=== PATIENT | female | born 1955 | race Two or more races ===

== ENCOUNTER → 2016-09-25 | Outpatient (CLI) | payer OTHER ==
--- NOTE | 2016-09-25 15:35 | KCIC ---
Ultrasound Pelvis Indication:Reason For Study Reason: POST MENOPAUSAL BLEEDING / Spl. Instructions: / History: Technique: Multiple real-time grayscale images were obtained over the pelvis transabdominally and transvaginally. Color Doppler imaging was utilized. Findings: The uterus is normal in size measuring 6.1 x 2.6 x 3.2 cm. The endometrium is thickened measuring 12 mm. The right ovary measures 1.8 x 0.8 x 2.6cm. No abnormal right ovarian lesions are identified. Normal blood flow is identified. The left ovary measures 1.9 x 1.1 x 2.0cm. There is a complex cyst versus nodule measuring 0.9 centimeters. Normal blood flow is identified. No pelvic free fluid is identified. Impression: - Thickened endometrium measuring 12 millimeters. - Complex cyst versus nodule in the left ovary. Electronically signed by: Ned Trimble (Sep 25, 2016 15:34:23)
== END | disposition home or self-care (01) ==
LOC: KCIC US 12:55
PROVIDERS: ATTEND Nurse Practitioner
DX: N95.0 Postmenopausal bleeding (principal)
CPT/HCPCS: 76830

== ENCOUNTER → 2016-10-10 | Outpatient (CLI) | payer OTHER | END | disposition home or self-care (01) | LOC: LAB 15:32 | PROVIDERS: ATTEND Obstetrics & Gynecology | DX: N83.9 Noninflammatory disorder of ovary, fallopian tube and broad ligament, unspecified (principal) | CPT/HCPCS: 86304 ==

== ENCOUNTER → 2016-11-27 | Outpatient (CLI) | payer OTHER ==
--- NOTE | 2016-11-27 15:28 | EKG ---
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
--- NOTE | 2016-11-27 16:07 | RAD ---
Exam: PA and lateral chest radiograph History: Preoperative for hysterectomy December 17, 2016. Comparison: None. Findings: Cardiomediastinal silhouette is within normal limits for size. Bilateral lung carey are free of focal infiltrate. No pleural effusion is seen. Impression: No acute cardiopulmonary process.
[2016-11-27 16:25] LABS: BASO # 0.1 x10^3/uL (0.0-0.2); BASO % 1 % (0-3); EOS % 4 % (0-3); HEMOGLOBIN 14.3 g/dL (12.0-15.5); LYMPH # 2.1 x10^3/uL (1.0-4.8); LYMPH % 27 % (24-48); MEAN CORPUSCULAR HEMOGLOBIN 30 pg (25-35); MEAN CORPUSCULAR HGB CONC 34 g/dL (31-37); MEAN CORPUSCULAR VOLUME 87 fL (79-100); MONO % 8 % (0-9); NEUT % 60 % (31-73); PLATELET COUNT 290 x10^3/uL (140-400); RED BLOOD COUNT 4.82 x10^6/uL (3.50-5.40); RED CELL DISTRIBUTION WIDTH 13.6 % (11.5-14.5); WHITE BLOOD COUNT 7.6 x10^3/uL (4.0-11.0)
[2016-11-27 16:42] LABS: ALBUMIN 3.9 g/dL (3.4-5.0); CALCIUM 9.4 mg/dL (8.5-10.1); CREATININE 0.8 mg/dL (0.6-1.0); GFR 72.9; POTASSIUM 3.5 mmol/L (3.5-5.1); TOTAL BILIRUBIN 0.3 mg/dL (0.2-1.0); TOTAL PROTEIN 7.9 g/dL (6.4-8.2)
== END | disposition home or self-care (01) ==
LOC: LAB 14:58
PROVIDERS: ATTEND Obstetrics & Gynecology Gynecologic Oncology
DX: Z01.818 Encounter for other preprocedural examination (principal); C54.1 Malignant neoplasm of endometrium
CPT/HCPCS: 36415; 71020; 80053; 85027; 86304; 93005

== ENCOUNTER → 2016-12-10 | Outpatient (CLI) | payer OTHER ==
[~2016-12-10] MED LIST: OMEG500C PO; RED600CA2 PO; REGADENOSON 0.4 MG/5 ML DISP.SYRIN. IV ONE
--- NOTE | 2016-12-10 14:21 | RAD ---
APPROVED REPORT Test Type: Pharmacological Stress Nurse/Tech: SHRAVAN Redd Test Indications: Pre-OP Cardiac History: See Electronic Medical Record Medications: See Electronic Medical Record Medical History: See Electronic Medical Record Resting ECG: SR Resting Heart Rate: 73 bpm Resting Blood Pressure: 167/90mmHg Pretest Chest Pain: No chest pain Nurse/Tech Notes S1S2, Denies CP or SOA, Lungs CTA Consent: The procedure was explained to the patient in lay terms. Informed consent was witnessed. Darrion eout was entered into [employer]. History and Stress Test performed by RT Erwin (R) (N) Pharm. Details Pharmacologic stress testing was performed using 0.4mg per 5ml of regadenoson given intravenously ove r 7-10 seconds. Stress Symptoms Pt c/o of "tightness in chest and abdomen" resolved quickly POST EXERCISE Reason for Termination: Infusion complete Max HR: 110 bpm Max Blood Pressure: 168/89mmHg Chest Pain: No. Arrhythmia: No. ST Change: No. INTERPRETATION Stress EKG Conclusion: Approximately 1.5mm upsloping inferolateral ST depression. Mildly positive res ponse. Imaging Protocol IMAGE PROTOCOL: Rest Tc-99m/stress Tc-99m 1 day Rest: Stress: Viability: Radiopharm.Tc99m MbifpxdusJq98h Sestamibi Dose11.3mCi 32mCi Img Date 12/10/2016 12/10/2016 Inj-Img Kbut31mpm. 60min. Rest Admin Site:IV - Right AntecubitalAdministrator:NAVDEEP Brownlee, ARRT (R)(N) Stress Admin Site: IV - Right AntecubitalAdministrator: RT Erwin (R)(N) STRESS DATA End Diast. Vol.42.0mlAv. Heart Rate75.0bpm End Syst. Vol.7.0mlCO Index BSA0.0L/min Myocardial Mass88.0gEject. Lazbgxqc32.0% Stress Rates Pk. Fill Rate4.23EDV/secLVtime Pk. Fill 228.22msec Pk. Empty Rate4.59ESV/secLVtime Pk. Kmuyy799.23msec /3 Pk. Fill0.69EDV/sec Stress Scores Regional WT1.00Summed WT2.00 Regional WM0.00Summed WM2.00 The rest and stress images show normal perfusion, normal contraction and thickening. LV Perf. Quant 17 Seg. SSS0.00 17 Seg. SRS0.00 17 Seg. SDS0.00 Stress Defect Extent (% LAD)0.00Rest Defect Extent (% LAD)0.00Rev. Defect Extent (% LAD)0.00 Stress Defect Extent (% LCX) 0.00Rest Defect Extent (% LCX)0.00Rev. Defect Extent (% LCX)0.00 Stress Defect Extent (% RCA)0.00Rest Defect Extent (% RCA)0.00Rev. Defect Extent (% RCA)0.00 Stress Defect Extent (% OVI)0.00Rest Defect Extent (% OVI)0.00Rev. Defect Extent (% OVI)0.00 Other Information Quality:Good Risk Assessment: Moderate-High Risk Conclusion 1. Approximately 1.5mm upsloping inferolateral ST depression. Mildly positive EKG response. 2. Normal perfusion at stress/rest but there is evidence of transient ischemic dilation at a ratio of 1.3, suggestive but not conclusive of balanced multivessel ischemia. 3. Normal EF at > 70% 4. Moderate to high risk study.
== END | disposition home or self-care (01) ==
LOC: NM 08:48
PROVIDERS: ATTEND Internal Medicine Cardiovascular Disease
DX: Z01.818 Encounter for other preprocedural examination (principal)
CPT/HCPCS: 78452; 93017; 96374; 96375; 96376; A9500; J2785

== ENCOUNTER → 2016-12-12 | Outpatient (CLI) | payer OTHER ==
[~2016-12-12] MED LIST changes: -REGADENOSON 0.4 MG/5 ML DISP.SYRIN. IV ONE
--- NOTE | 2016-12-12 15:02 | CARD ---
APPROVED REPORT EXAM: Two-dimensional and M-mode echocardiogram with Doppler and color Doppler. Other Information Quality : Average Rhythm : NSR INDICATION Murmur 2D DIMENSIONS RVDd2.6 (2.9-3.5cm)Left Atrium(2D)2.4 (1.6-4.0cm) IVSd1.0 (0.7-1.1cm)Aortic Root(2D)2.4 (2.0-3.7cm) LVDd3.5 (3.9-5.9cm)LVOT Diameter1.9 (1.8-2.4cm) PWd1.0 (0.7-1.1cm)LVDs2.1 (2.5-4.0cm) FS (%) 30.6 %SV37.5 ml LVEF(%)62.4 (>50%) Aortic Valve AoV Peak Keaton.133.8cm/sAoV VTI26.3cm AO Peak GR.7.2mmHgLVOT Peak Keaton.114.2cm/s LVOT VTI 23.78cmAO Mean GR.4mmHg SARAH (VMAX)2.55ki1ZXD (VTI)2.46cm2 Mitral Valve MV E Jbgomofd01.9cm/sMV DECEL TPWK339ro MV A Qwugpqhw11.3cm/sMV HKO06eg E/A Ratio0.8MV A Behvripd501cj MVA (PHT)3.42cm2 TDI E/Lateral E'7.4E/Medial E'8.4 Pulmonary Valve PV Peak Axjvefrr125.5cm/sPV Peak Grad.4mmHg Tricuspid Valve TR P. Iymglwzd584mq/sRAP LKIGEPOW8vhDg TR Peak Gr.70fhBuKLXR46ifKr LEFT VENTRICLE The left ventricle is normal size. There is normal left ventricular wall thickness. Left ventricle sy stolic function is normal. The Ejection Fraction is 60-65%. There is normal LV segmental wall motion. The left ventricular diastolic function and filling is normal for age. There is no ventricular septa l defect visualized. RIGHT VENTRICLE The right ventricle is normal size. The right ventricular systolic function is normal. ATRIA The left atrium size is normal. The right atrium size is normal. The interatrial septum is intact wit h no evidence for an atrial septal defect or patent foramen ovale as noted on 2-D or Doppler imaging. AORTIC VALVE The aortic valve is normal in structure and function. The aortic valve is trileaflet. Doppler and Col or Flow revealed no significant aortic regurgitation. There is no significant aortic valvular stenosi s. MITRAL VALVE The mitral valve is normal in structure and function. There is no mitral valve stenosis. Doppler and Color Flow revealed trace mitral regurgitation. TRICUSPID VALVE The tricuspid valve is normal in structure and function. Doppler and Color Flow revealed trace tricus pid regurgitation. The PA pressure was estimated at 29 mmHg. There is no tricuspid valve stenosis. PULMONIC VALVE The pulmonic valve is not well visualized. Doppler and Color Flow revealed no pulmonic valvular regur gitation. There is no pulmonic valvular stenosis. GREAT VESSELS The aortic root is normal in size. The IVC is normal in size and collapses >50% with inspiration. PERICARDIAL EFFUSION There is no evidence of significant pericardial effusion. Critical Notification Critical Value: No <Conclusion> Left ventricle systolic function is normal. The Ejection Fraction is 60-65%. There is normal LV segmental wall motion.
== END | disposition home or self-care (01) ==
LOC: ECHO 13:54
PROVIDERS: ATTEND Internal Medicine Cardiovascular Disease
DX: I08.1 Rheumatic disorders of both mitral and tricuspid valves (principal)
CPT/HCPCS: 93306

== ENCOUNTER 2016-12-13 06:29 | Outpatient (CLI) | payer OTHER ==
[~2016-12-13] VITALS: Ht 152.4 cm; Wt 51.3 kg
[2016-12-13] VITALS (8 sets, daily range): BP systolic 140–178; BP diastolic 78–95
[2016-12-13] MEDS ORDERED: IOHEXOL 300 MG/ML 100ML VIAL. ONE (07:10)
[2016-12-13] MEDS ORDERED: LIDOCAINE 2% 20 ML VIAL. ONE (07:10)
[2016-12-13 07:19] LABS: HEMOGLOBIN 13.7 g/dL (12.0-15.5); RED BLOOD COUNT 4.65 x10^6/uL (3.50-5.40); WHITE BLOOD COUNT 6.8 x10^3/uL (4.0-11.0)
[2016-12-13 07:24] LABS: CALCIUM 9.3 mg/dL (8.5-10.1); CREATININE 0.7 mg/dL (0.6-1.0); GFR 85.1; POTASSIUM 3.7 mmol/L (3.5-5.1)
[2016-12-13 07:28] LABS: PROTHROMBIN TIME PATIENT 12.3 SEC (11.7-14.0)
[2016-12-13] MEDS ORDERED: VERAPAMIL 5 MG/2 ML VIAL. ONE (07:31)
[2016-12-13] MEDS ORDERED: fentaNYL PF VIAL 100 MCG/2 ML VIAL ONE (07:31)
[2016-12-13] MEDS ORDERED: NITROGLYCERIN 200 MCG/2 ML SYRINGE FOR CATH/VASC LAB. ONE (07:31)
[2016-12-13] MEDS ORDERED: MIDAZOLAM HCL/PF 2 MG/2 ML VIAL. ONE (07:31)
[2016-12-13] MEDS ORDERED: HEPARIN for IV BOLUS 10,000 UNIT/10 ML VIAL. ONE (07:32)
[2016-12-13] MEDS ORDERED: VERAPAMIL 5 MG/2 ML VIAL. IART ONE (08:15)
[2016-12-13] MEDS ORDERED: MIDAZOLAM HCL/PF 2 MG/2 ML VIAL. IV ONE (08:15)
[2016-12-13] MEDS ORDERED: fentaNYL PF VIAL 100 MCG/2 ML VIAL IV ONE (08:15)
[2016-12-13] MEDS ORDERED: HEPARIN for IV BOLUS 10,000 UNIT/10 ML VIAL. IART ONE (08:15)
[2016-12-13] MEDS ORDERED: NITROGLYCERIN 200 MCG/2 ML SYRINGE FOR CATH/VASC LAB. IART ONE (08:15)
[2016-12-13] MEDS ORDERED: IOHEXOL 300 MG/ML 100ML VIAL. IART ONE (08:15)
[2016-12-13] MEDS ORDERED: LIDOCAINE 2% 20 ML VIAL. IJ ONE (08:15)
[2016-12-13] MEDS ORDERED: IV 1/2 NORMAL SALINE 1,000 ML IV SCH (08:45)
--- NOTE | 2016-12-13 08:47 | PDOC ---
MODERATE SEDATION ASSESSMENT RISKS/ALTERNATIVES Risks/Alternatives Risks and alternatives of this type of sedation and procedure discussed with: RISK/ALTERNATIVES: Patient H & P ON CHART H & P H & P on chart and reviewed for co-morbid conditions and appropriate labs. H&P ON CHART: Yes STATUS PREG STATUS ASSESSED: N/A MEDS/ALLERGIES REVIEWED Meds/Allergies Reviewed Medications and Allergies including time and route of recently administered narcotics and sedatives. MEDS/ALLERGIES REVIEWED: Yes ASA RATING ASA RATING: II AIRWAY ASSESSMENT Airway Assessment Airway patency, oral function limitations, presence of caps, crowns, dentures, partials, and ability to extend neck assessed. AIRWAY ASSESSMENT: Yes MALLAMPATI SCORE MALLAMPATI SCORE: II PRE-SEDATION ASSESSMENT PRE-SEDATION ASSESSMENT: Yes DANE KLEIN MD December 13, 2016 08:47
--- NOTE | 2016-12-13 09:08 | CARD ---
APPROVED REPORT Procedure(s) performed: Left Heart Catheterization, selective coronary angiography and left ventricul ography via right trans-ulnar approach INDICATION The indication(s) include : Preoperative evaluation and positive stress test. PROCEDURE NARRATIVE After explaining the risks, benefits and alternative options, informed consent was obtained from fabrizio ent. Patient was brought to the cardiac Masking Machine Feeder and right wrist was prepped and draped in the usual fashion after confirming a positive modified Lalo's test. After initial attempts to obtain radial arterial access failed secondary to small caliber nature of the vessel, arterial access was obtained in the right ulnar artery and 6 Indian sheath was inserted. 5 Indian Sudhakar and 5 Indian JR4 catheter s were used to perform selective angiography of the left and right coronary arteries. The Sudhakar cath eter was also used to perform left ventriculography. Patient tolerated the procedure well. Hemostas is was achieved using TR band. There were no immediate complications. The following findings were n oted. FINDINGS 1. Hemodynamics: Left ventricular end-diastolic pressure of 24 mmHg. No pullback gradient across th e aortic valve. 2. Left ventriculography: Normal left ventricle systolic function with ejection fraction estimated at 60%. No significant mitral regurgitation seen. 3. Coronary angiography: a. The left main coronary artery arose from the left sinus of Valsalva, gave rise to the left anteri or descending and left circumflex arteries and did not show any significant stenosis. b. The left anterior descending artery did not show any significant stenosis. c. The left circumflex artery did not show any significant stenosis. d. The right coronary artery was a large and dominant vessel arising from the right sinus of Valsalv a that showed 30% proximal to mid segment stenosis. Conclusion 1. No significant coronary artery disease 2. Normal left ventricle systolic function with ejection fraction estimated at 60% Recommendations Patient is cleared for surgery from cardiac standpoint.
== END 2016-12-13 11:09 | disposition home or self-care (01) ==
LOC: CCL 06:29
PROVIDERS: ATTEND Internal Medicine Cardiovascular Disease
DX: I25.10 Atherosclerotic heart disease of native coronary artery without angina pectoris (principal); Z85.42 Personal history of malignant neoplasm of other parts of uterus; Z79.01 Long term (current) use of anticoagulants
CPT/HCPCS: 36415; 80048; 85027; 85610; 85730; 93458; C1769; C1892; J2250; J3010; J3490; Q9967

== ENCOUNTER → 2017-12-23 | Outpatient (CLI) | payer OTHER | END | disposition home or self-care (01) | LOC: KCIC 13:25 | DX: C54.1 Malignant neoplasm of endometrium (principal); I10 Essential (primary) hypertension; E55.9 Vitamin D deficiency, unspecified | CPT/HCPCS: 71046 ==

== ENCOUNTER → 2018-04-23 | Outpatient (CLI) | payer OTHER ==
[2016-12-13 10:12] VITALS: BP 156/78
[~2018-04-23] MED LIST changes: +ASCO10002 PO; +CHOL10003 PO; +FEXO180T81 PO; +KRIL1CAP18 PO; +LUTE40CA PO; +MULT1TAB52 PO; +OMEG100021 PO; +curcumin PO
== END | disposition home or self-care (01) ==
LOC: SPEC 15:19
PROVIDERS: ATTEND Obstetrics & Gynecology
DX: C54.1 Malignant neoplasm of endometrium (principal)
CPT/HCPCS: 88175

== ENCOUNTER → 2018-07-14 | Outpatient (CLI) | payer OTHER ==
[2016-12-13 10:12] VITALS: BP 156/78
--- NOTE | 2018-07-14 17:03 | KCIC ---
Indication: Postmenopausal screening for osteoporosis.. Follow-up study. COMPARISON: June 14, 2015. Bone Density: -BMD: (g/cm2) - AP Spine Total (L1-L4).......... 0.967. - Total left Hip................. 0.899. T-Score: - AP Spine Total (L1-L4)......... -0.7. - Total left Hip................. -0.4. Z-Score: - AP Spine Total (L1-L4).......... 0.9. - Total left Hip................. 0.8. World Health Organization criteria for BMD interpretation classify patients as Normal (T-score at or above -1.0), Osteopenic (T-score between -1.0 and -2.5), or Osteoporotic (T-score at or below -2.5). Impression: 1. AP Spine Total L1-L4--- normal study. Since the previous examination, there has been an increase in the BMD of approximately 3 percent.. 2. Total left Hip--- normal. Since the previous study, there has been an increase in the BMD of 2.5 percent. Electronically signed by: Rohit Beckett MD (07/14/2018 4:59 PM) [facility]
--- NOTE | 2018-07-14 17:40 | KCIC ---
Bilateral digital screening mammograms with 3-D tomosynthesis: Reason for examination: Routine screening. Comparison is made to previous studies dated 06/21/2015 and 04/06/2010. Bilateral mammograms in CC and oblique projections were obtained with 2-D imaging and 3-D tomosynthesis imaging on a Siemens Inspiration unit and reviewed on the workstation. Interpretation was made with the benefit of CAD. The skin and nipples show no abnormalities. No abnormal axillary lymph nodes are seen. The breast parenchyma shows scattered fatty and fibroglandular density. (Breast density: Category B.) There are no dominant masses, suspicious calcifications or architectural distortion. Impression: No evidence of malignancy. Recommend routine screening. BI-RAD Category 1: Negative. "Our facility is accredited by the [employer] Mammography Program." This patient's information has been entered into a reminder system for the patient to be notified with the results of her examination and a target date for the next mammogram. Electronically signed by: Teresa Carlin MD (07/14/2018 5:36 PM) [id number]
== END | disposition home or self-care (01) ==
LOC: KCIC DEXA 11:32
DX: Z12.31 Encounter for screening mammogram for malignant neoplasm of breast (principal); Z13.820 Encounter for screening for osteoporosis; Z78.0 Asymptomatic menopausal state
CPT/HCPCS: 77063; 77067; 77080

== ENCOUNTER → 2018-07-16 | Outpatient (CLI) | payer OTHER ==
[2016-12-13 10:12] VITALS: BP 156/78
[2018-07-16 09:35] LABS: BASO % 1 % (0-3); EOS # 0.3 x10^3/uL (0.0-0.7); EOS % 5 % (0-3); HEMATOCRIT 40.9 % (36.0-47.0); HEMOGLOBIN 14.1 g/dL (12.0-15.5); LYMPH # 1.8 x10^3/uL (1.0-4.8); LYMPH % 31 % (24-48); MEAN CORPUSCULAR HEMOGLOBIN 30 pg (25-35); MEAN CORPUSCULAR HGB CONC 35 g/dL (31-37); MEAN CORPUSCULAR VOLUME 88 fL (79-100); MONO # 0.4 x10^3/uL (0.0-1.1); MONO % 7 % (0-9); NEUT # 3.3 x10^3uL (1.8-7.7); NEUT % 56 % (31-73); PLATELET COUNT 298 x10^3/uL (140-400); RED BLOOD COUNT 4.65 x10^6/uL (3.50-5.40); RED CELL DISTRIBUTION WIDTH 13.3 % (11.5-14.5); WHITE BLOOD COUNT 5.9 x10^3/uL (4.0-11.0)
[2018-07-16 09:37] LABS: ALBUMIN 3.8 g/dL (3.4-5.0); CALCIUM 9.2 mg/dL (8.5-10.1); CREATININE 0.8 mg/dL (0.6-1.0); GFR 72.4; MAGNESIUM 2.3 mg/dL (1.8-2.4); POTASSIUM 3.6 mmol/L (3.5-5.1); TOTAL BILIRUBIN 0.5 mg/dL (0.2-1.0); TOTAL PROTEIN 7.8 g/dL (6.4-8.2)
[2018-07-16 09:40] LABS: CHOLESTEROL/HDL RATIO 3.6
[2018-07-16 14:28] LABS: THYROXINE 7.4 ug/dL (4.5-12.0)
== END | disposition home or self-care (01) ==
LOC: LAB 08:49
DX: Z00.00 Encounter for general adult medical examination without abnormal findings (principal); I10 Essential (primary) hypertension; Z79.01 Long term (current) use of anticoagulants
CPT/HCPCS: 36415; 80053; 80061; 82306; 83735; 84436; 84443; 84480; 85025

== ENCOUNTER → 2018-10-22 | Outpatient (CLI) | payer OTHER ==
[2016-12-13 10:12] VITALS: BP 156/78
== END | disposition home or self-care (01) ==
LOC: SPEC 15:46
DX: C54.1 Malignant neoplasm of endometrium (principal)
CPT/HCPCS: 88175

== ENCOUNTER → 2018-12-16 | Outpatient (CLI) | payer OTHER ==
[2016-12-13 10:12] VITALS: BP 156/78
--- NOTE | 2018-12-16 14:14 | KCIC ---
Single view chest dated 12/16/2018. Comparison made to 12/23/2017. Clinical data indication: Follow-up endometrial cancer. FINDINGS: Single upright portable exam performed. Heart and mediastinal contours are stable. Lungs are somewhat hyperinflated but otherwise clear. No consolidation or pleural effusion. No pneumothorax. IMPRESSION: 1. No acute radiographic abnormality. 2. Hyperinflation suggesting COPD. Electronically signed by: Gato Comer MD (12/16/2018 2:11 PM) [id number]
== END | disposition home or self-care (01) ==
LOC: KCIC 13:40
PROVIDERS: ATTEND Nurse Practitioner Family
DX: Z08 Encounter for follow-up examination after completed treatment for malignant neoplasm (principal); Z85.42 Personal history of malignant neoplasm of other parts of uterus
CPT/HCPCS: 71045

== ENCOUNTER → 2019-01-27 | Outpatient (CLI) | payer OTHER ==
[2016-12-13 10:12] VITALS: BP 156/78
== END | disposition home or self-care (01) ==
LOC: SPEC 16:58
PROVIDERS: ATTEND Obstetrics & Gynecology
DX: C54.1 Malignant neoplasm of endometrium (principal)
CPT/HCPCS: 88175

== ENCOUNTER → 2019-04-22 | Outpatient (CLI) | payer OTHER ==
[2016-12-13 10:12] VITALS: BP 156/78
== END | disposition home or self-care (01) ==
LOC: SPEC 10:26
PROVIDERS: ATTEND Obstetrics & Gynecology
DX: C54.1 Malignant neoplasm of endometrium (principal)
CPT/HCPCS: 88175

== ENCOUNTER → 2019-06-21 | Outpatient (CLI) | payer OTHER ==
[2016-12-13 10:12] VITALS: BP 156/78
[2019-06-21 16:01] LABS: BASO # 0.1 x10^3/uL (0.0-0.2); BASO % 1 % (0-3); EOS # 0.2 x10^3/uL (0.0-0.7); EOS % 3 % (0-3); HEMATOCRIT 40.2 % (36.0-47.0); HEMOGLOBIN 13.5 g/dL (12.0-15.5); LYMPH # 2.1 x10^3/uL (1.0-4.8); LYMPH % 28 % (24-48); MEAN CORPUSCULAR HEMOGLOBIN 30 pg (25-35); MEAN CORPUSCULAR HGB CONC 34 g/dL (31-37); MEAN CORPUSCULAR VOLUME 89 fL (79-100); MONO # 0.5 x10^3/uL (0.0-1.1); MONO % 7 % (0-9); NEUT # 4.6 x10^3/uL (1.8-7.7); NEUT % 61 % (31-73); PLATELET COUNT 300 x10^3/uL (140-400); RED BLOOD COUNT 4.55 x10^6/uL (3.50-5.40); RED CELL DISTRIBUTION WIDTH 13.4 % (11.5-14.5); WHITE BLOOD COUNT 7.6 x10^3/uL (4.0-11.0)
[2019-06-21 16:43] LABS: ALBUMIN 3.8 g/dL (3.4-5.0); ALBUMIN/GLOBULIN RATIO 0.9 (1.0-1.7); CALCIUM 9.1 mg/dL (8.5-10.1); CREATININE 0.7 mg/dL (0.6-1.0); GFR 84.2; MAGNESIUM 2.2 mg/dL (1.8-2.4); POTASSIUM 3.5 mmol/L (3.5-5.1); TOTAL BILIRUBIN 0.2 mg/dL (0.2-1.0)
[2019-06-21 16:47] LABS: CHOLESTEROL/HDL RATIO 4.4
[2019-06-21 16:49] LABS: FREE T4 0.89 ng/dL (0.76-1.46); THYROID STIM HORMONE (TSH) 1.175 uIU/mL (0.358-3.74)
== END | disposition home or self-care (01) ==
LOC: LAB 15:26
PROVIDERS: ATTEND Nurse Practitioner Family
DX: Z00.00 Encounter for general adult medical examination without abnormal findings (principal); Z78.0 Asymptomatic menopausal state
CPT/HCPCS: 36415; 80053; 80061; 82306; 83735; 84439; 84443; 84480; 85025

== ENCOUNTER → 2019-07-16 | Outpatient (CLI) | payer OTHER ==
[2016-12-13 10:12] VITALS: BP 156/78
[2019-07-17 02:08] LABS: HEMOGLOBIN A1C 6.1 % (4.8-5.6)
== END | disposition home or self-care (01) ==
LOC: LAB 11:08
PROVIDERS: ATTEND Nurse Practitioner Family
DX: R73.01 Impaired fasting glucose (principal)
CPT/HCPCS: 36415; 83036

== ENCOUNTER → 2020-01-18 | Outpatient (CLI) | payer OTHER ==
[2016-12-13 10:12] VITALS: BP 156/78
[~2020-01-18] MED LIST changes: +MULT-445 PO; -MULT1TAB52 PO
--- NOTE | 2020-01-18 15:42 | KCIC ---
PA and lateral chest x-ray without comparison for checkup, history of endometrial cancer. FINDINGS: In the right lower lung on the frontal projection only, there is a 1.6 cm smooth subtle nodular opacity, which is nondisplaced seen on prior radiographs. No corresponding abnormality is seen on the left, however this could represent a benign nipple shadow. Alternatively this could represent a parenchymal lung nodule. Consider repeat radiographic evaluation with nipple markers to include PA, lateral, and apical lordotic views. Lungs are otherwise clear. Heart size is borderline enlarged. No significant osseous abnormalities are seen. IMPRESSION: 1. 1.6 cm poorly nodule versus nipple shadow in the right lower lung. Further evaluation with repeat radiographs with nipple markers, to include PA, lateral, and apical lordotic views is recommended. Electronically signed by: Yevgeniy Blackwell MD (01/18/2020 3:39 PM) [id number]
== END ==
LOC: KCIC 14:42
PROVIDERS: ATTEND Nurse Practitioner Women's Health
DX: Z85.42 Personal history of malignant neoplasm of other parts of uterus (principal)
CPT/HCPCS: 71046

== ENCOUNTER → 2020-03-03 | Outpatient (CLI) | payer OTHER ==
[2016-12-13 10:12] VITALS: BP 156/78
[~2020-03-03] MED LIST changes: +ASCO100019 PO; -ASCO10002 PO
--- NOTE | 2020-03-03 15:27 | KCIC ---
EXAM: CHEST 2V W/ APICAL LORDOTIC INDICATION: Reason: NODULE RT LOWER LUNG SEEN ON PRIOR CXR, HX OF ENDOMETRIAL CA / Spl. Instructions: NIPPLE MARKERS USED / History: . TECHNIQUE: PA and lateral views COMPARISON: 01/18/2020 chest x-ray FINDINGS: The heart size is normal. The great vessels appear unremarkable. There is no hilar or mediastinal mass. The lungs are clear. Previously questioned nodule versus nipple shadow correlates with the patient's right nipple as indicated by markers on this exam. There is no pleural effusion or pneumothorax. There are no significant osseous abnormalities. IMPRESSION: No active cardiopulmonary disease. No findings suspicious for metastatic disease. Electronically signed by: Gladys Velarde MD (03/03/2020 3:24 PM) [id number]
== END | disposition home or self-care (01) ==
LOC: KCIC 13:44
PROVIDERS: ATTEND Nurse Practitioner Women's Health
DX: R91.1 Solitary pulmonary nodule (principal)
CPT/HCPCS: 71047

== ENCOUNTER → 2020-04-27 | Outpatient (CLI) | payer OTHER ==
[2016-12-13 10:12] VITALS: BP 156/78
== END | disposition home or self-care (01) ==
LOC: SPEC 13:28
PROVIDERS: ATTEND Obstetrics & Gynecology
DX: Z01.419 Encounter for gynecological examination (general) (routine) without abnormal findings (principal)
CPT/HCPCS: 87623; 88175

== ENCOUNTER → 2020-06-27 | Outpatient (CLI) | payer OTHER ==
[2016-12-13 10:12] VITALS: BP 156/78
[2020-06-27 13:10] LABS: ALBUMIN 3.8 g/dL (3.4-5.0); ALBUMIN/GLOBULIN RATIO 0.9 (1.0-1.7); CALCIUM 9.4 mg/dL (8.5-10.1); CREATININE 0.7 mg/dL (0.6-1.0); MAGNESIUM 2.7 mg/dL (1.8-2.4); POTASSIUM 3.8 mmol/L (3.5-5.1); TOTAL BILIRUBIN 0.6 mg/dL (0.2-1.0)
[2020-06-27 13:16] LABS: CHOLESTEROL/HDL RATIO 3.7
[2020-06-27 13:19] LABS: BASO # 0.1 x10^3/uL (0.0-0.2); BASO % 1 % (0-3); EOS # 0.3 x10^3/uL (0.0-0.7); EOS % 4 % (0-3); HEMATOCRIT 41.9 % (36.0-47.0); HEMOGLOBIN 13.7 g/dL (12.0-15.5); LYMPH # 2.3 x10^3/uL (1.0-4.8); LYMPH % 31 % (24-48); MEAN CORPUSCULAR HEMOGLOBIN 29 pg (25-35); MEAN CORPUSCULAR HGB CONC 33 g/dL (31-37); MEAN CORPUSCULAR VOLUME 88 fL (79-100); MONO # 0.6 x10^3/uL (0.0-1.1); MONO % 7 % (0-9); NEUT # 4.2 x10^3/uL (1.8-7.7); NEUT % 57 % (31-73); PLATELET COUNT 328 x10^3/uL (140-400); RED BLOOD COUNT 4.78 x10^6/uL (3.50-5.40); RED CELL DISTRIBUTION WIDTH 13.6 % (11.5-14.5); WHITE BLOOD COUNT 7.4 x10^3/uL (4.0-11.0)
[2020-06-27 13:21] LABS: FREE T4 1.24 ng/dL (0.76-1.46); THYROID STIM HORMONE (TSH) 0.913 uIU/mL (0.358-3.74)
== END ==
LOC: LAB 11:58
PROVIDERS: ATTEND Nurse Practitioner Family
DX: Z12.11 Encounter for screening for malignant neoplasm of colon (principal); Z00.00 Encounter for general adult medical examination without abnormal findings
CPT/HCPCS: 36415; 80053; 80061; 82306; 83735; 84439; 84443; 85025

== ENCOUNTER → 2020-10-24 | Outpatient (CLI) | payer OTHER ==
[2016-12-13 10:12] VITALS: BP 156/78
== END ==
LOC: SPEC 11:18
PROVIDERS: ATTEND Obstetrics & Gynecology
DX: C54.1 Malignant neoplasm of endometrium (principal)
CPT/HCPCS: 88175